=== PATIENT | male | born 1975 | race Caucasian/White ===

== ENCOUNTER 2021-05-19 10:35 | Emergency (ER) | payer OTHER ==
[~2021-05-19] VITALS: Ht 182.9 cm; Wt 72.6 kg
[2021-05-19] MEDS ORDERED: ZESTRIL20 MG (10:52)
[2021-05-19] MEDS ORDERED: MONODOX100 MG PO (14:26)
== END 2021-05-19 14:56 | disposition home or self-care (01) ==
LOC: ER 10:35
DX: R53.81 Other malaise (principal); M54.89 Other dorsalgia